=== PATIENT | female | born 1960 | race Caucasian/White ===

== ENCOUNTER → 2018-07-13 | Outpatient (CLI) | payer OTHER | LOC: FIMAGING 07:52 | PROVIDERS: ATTEND Psychiatry & Neurology Neurology | DX: G93.89 Other specified disorders of brain (principal); R90.82 White matter disease, unspecified; Z85.3 Personal history of malignant neoplasm of breast ==

== ENCOUNTER → 2019-01-01 | Outpatient (CLI) | payer BC | LOC: EMCIMAGING 12:23 | PROVIDERS: ATTEND Psychiatry & Neurology Neurology | DX: F07.89 Other personality and behavioral disorders due to known physiological condition (principal); F09 Unspecified mental disorder due to known physiological condition | CPT/HCPCS: 70450-PN ==